=== PATIENT | female | born 1925 | race Caucasian/White ===

== ENCOUNTER 2017-04-28 12:57 | Emergency (ER) | payer MEDICARE ==
--- NOTE | 2017-04-28 14:06 | ED ---
General Adult HPI - General Chief complaint: Arrhythmia/Palpitations Stated complaint: leg pain/injury Time Seen by Provider: 04/28/17 13:28 Source: patient, RN notes reviewed Mode of arrival: ambulatory Limitations: no limitations - History of Present Illness Initial comments: 89-year-old female presents for evaluation of right lower extremity swelling erythema and warmth. Patient states she has approximately 2 days ago. She also is complaining of palpitations and shortness of breath. Denies chest pain. States over the past week these additional symptoms have developed. She does have a history of atrial fibrillation. She is currently on Coumadin. Denies abdominal pain. Denies nausea vomiting or diarrhea. She has not been eating well, this is secondary to stress at home as her is currently sick. - Related Data Home Medications Medication Instructions Recorded Confirmed Digoxin [Lanoxin] 250 mcg PO HS 04/28/17 04/28/17 Furosemide [Lasix] 20 mg PO DAILY 04/28/17 04/28/17 Levothyroxine Sodium [Synthroid] 50 mcg PO DAILY 04/28/17 04/28/17 Losartan Potassium [Cozaar] 25 mg PO DAILY 04/28/17 04/28/17 Metoprolol Tartrate [Lopressor] 25 mg PO BID 04/28/17 04/28/17 Spironolactone [Aldactone] 25 mg PO DAILY@2100 04/28/17 04/28/17 Travoprost [Travatan Z 0.004%] 1 drop BOTH EYES HS 04/28/17 04/28/17 Warfarin [Coumadin] 2.5 mg PO MOWEFR 04/28/17 04/28/17 Warfarin [Coumadin] 5 mg PO SUTUTHSA 04/28/17 04/28/17 Allergies Allergy/AdvReac Type Severity Reaction Status Date / Time No Known Allergies Allergy Verified 04/28/17 15:29 Review of Systems ROS Statement: Those systems with pertinent positive or pertinent negative responses have been documented in the HPI. ROS Other: All systems not noted in ROS Statement are negative. Past Medical History Past Medical History: Atrial Fibrillation, Cancer Additional Past Medical History / Comment(s): lung cancer History of Any Multi-Drug Resistant Organisms: None Reported Additional Past Surgical History / Comment(s): lobectomy Past Psychological History: No Psychological Hx Reported Smoking Status: Never smoker Past Alcohol Use History: None Reported Past Drug Use History: None Reported General Exam Limitations: no limitations General appearance: alert, in no apparent distress Head exam: Present: atraumatic, normocephalic Eye exam: Present: normal appearance, PERRL ENT exam: Present: normal exam Neck exam: Present: normal inspection. Absent: tenderness, meningismus Respiratory exam: Present: normal lung sounds bilaterally. Absent: respiratory distress Cardiovascular Exam: Present: tachycardia, irregular rhythm GI/Abdominal exam: Present: soft. Absent: distended, tenderness Extremities exam: Present: pedal edema, other (Right lower extremity, slightly larger than left, there is erythema, ecchymosis on the anterior canela.) Neurological exam: Present: alert, oriented X3. Absent: motor sensory deficit Psychiatric exam: Present: normal affect, normal mood Skin exam: Present: warm, dry. Absent: cyanosis, diaphoretic Course Vital Signs 04/28/17 04/28/17 13:20 14:08 Temperature 98.1 F Pulse Rate 121 H Pulse Rate [ 115 H [employer] ] Respiratory 22 Rate Blood Pressure 158/88 O2 Sat by Pulse 97 Oximetry EKG Findings - EKG Comments: EKG Findings:: afibrillation with RVR, ventricular rate 112, low voltage QRS, castration 86, QTC 453 signs of ischemia. Medical Decision Making - Medical Decision Making 89-year-old female presents with chief complaint of lower extremity swelling and bruising on the right canela. She also had some shortness of breath which has been ongoing. Workup includes ultrasound of the right lower extremity which is negative for DVT. X-ray of the tibia-fibula does show some soft tissue edema. There is no overlying warmth, there is ecchymosis. This is consistent with contusion and hematoma. Chest x-rays obtained for shortness of breath, negative for pneumonia, there is cardiomegaly versus effusion. Laboratory studies reveal white blood cell count 7.2. Platelets 95, INR 4.0, troponin negative, urinalysis negative. Patient is instructed to hold the next 2 doses of her Coumadin for elevated INR. Patient is given IV fluid and additional dose of her metoprolol for her A. fib with RVR, patient's heart rate does improve to the 80s to 90s. Given the x-ray findings and low voltage EKG, there is concern for effusion. These findings were discussed with the patient' s primary care physician who states the patient does have a known pericardial effusion. There is no plan for surgical intervention. Patient will follow-up with primary care physician early this week. Return to the emergency department with worsening symptoms. - Lab Data Result diagrams: 04/28/17 14:06 04/28/17 14:06 Lab Results 04/28/17 04/28/17 04/28/17 Range/Units 14:06 14:06 14:06 WBC 7.2 (3.8-10.6) k/uL RBC 4.50 (3.80-5.40) m/uL Hgb 13.5 (11.4-16.0) gm/dL Hct 42.7 (34.0-46.0) % MCV 94.9 (80.0-100.0) fL MCH 29.9 (25.0-35.0) pg MCHC 31.6 (31.0-37.0) g/dL RDW 14.4 (11.5-15.5) % Plt Count 95 L (150-450) k/uL Neutrophils % 66 % Lymphocytes % 21 % Monocytes % 8 % Eosinophils % 1 % Basophils % 0 % Neutrophils # 4.7 (1.3-7.7) k/uL Lymphocytes # 1.5 (1.0-4.8) k/uL Monocytes # 0.6 (0-1.0) k/uL Eosinophils # 0.1 (0-0.7) k/uL Basophils # 0.0 (0-0.2) k/uL Manual Slide Review Performed PT (9.0-12.0) sec INR (<1.2) APTT (22.0-30.0) sec Sodium 141 (137-145) mmol/L Potassium 4.6 (3.5-5.1) mmol/L Chloride 102 (98-107) mmol/L Carbon Dioxide 29 (22-30) mmol/L Anion Gap 10 mmol/L BUN 18 H (7-17) mg/dL Creatinine 1.00 (0.52-1.04) mg/dL Est GFR (MDRD) Af Amer >60 (>60 ml/min/1.73 sqM) Est GFR (MDRD) Non-Af 52 (>60 ml/min/1.73 sqM) Glucose 98 (74-99) mg/dL Plasma Lactic Acid Brayden (0.7-2.0) mmol/L Calcium 9.6 (8.4-10.2) mg/dL Magnesium 2.1 (1.6-2.3) mg/dL Total Bilirubin 0.8 (0.2-1.3) mg/dL AST 38 H (14-36) U/L ALT 35 (9-52) U/L Alkaline Phosphatase 72 (38-126) U/L Total Creatine Kinase 113 (30-135) U/L CK-MB (CK-2) 3.4 H* (0.0-2.4) ng/mL CK-MB (CK-2) Rel Index 3.0 Troponin I <0.012 (0.000-0.034) ng/mL Total Protein 8.1 (6.3-8.2) g/dL Albumin 4.4 (3.5-5.0) g/dL Urine Color Urine Appearance (Clear) Urine pH (5.0-8.0) Ur Specific Nevis (1.001-1.035) Urine Protein (Negative) Urine Glucose (UA) (Negative) Urine Ketones (Negative) Urine Blood (Negative) Urine Nitrite (Negative) Urine Bilirubin (Negative) Urine Urobilinogen (<2.0) mg/dL Ur Leukocyte Esterase (Negative) 04/28/17 04/28/17 04/28/17 Range/Units 14:06 14:06 14:40 WBC (3.8-10.6) k/uL RBC (3.80-5.40) m/uL Hgb (11.4-16.0) gm/dL Hct (34.0-46.0) % MCV (80.0-100.0) fL MCH (25.0-35.0) pg MCHC (31.0-37.0) g/dL RDW (11.5-15.5) % Plt Count (150-450) k/uL Neutrophils % % Lymphocytes % % Monocytes % % Eosinophils % % Basophils % % Neutrophils # (1.3-7.7) k/uL Lymphocytes # (1.0-4.8) k/uL Monocytes # (0-1.0) k/uL Eosinophils # (0-0.7) k/uL Basophils # (0-0.2) k/uL Manual Slide Review PT 38.8 H (9.0-12.0) sec INR 4.0 H (<1.2) APTT 42.3 H (22.0-30.0) sec Sodium (137-145) mmol/L Potassium (3.5-5.1) mmol/L Chloride (98-107) mmol/L Carbon Dioxide (22-30) mmol/L Anion Gap mmol/L BUN (7-17) mg/dL Creatinine (0.52-1.04) mg/dL Est GFR (MDRD) Af Amer (>60 ml/min/1.73 sqM) Est GFR (MDRD) Non-Af (>60 ml/min/1.73 sqM) Glucose (74-99) mg/dL Plasma Lactic Acid Brayden 1.1 (0.7-2.0) mmol/L Calcium (8.4-10.2) mg/dL Magnesium (1.6-2.3) mg/dL Total Bilirubin (0.2-1.3) mg/dL AST (14-36) U/L ALT (9-52) U/L Alkaline Phosphatase (38-126) U/L Total Creatine Kinase (30-135) U/L CK-MB (CK-2) (0.0-2.4) ng/mL CK-MB (CK-2) Rel Index Troponin I (0.000-0.034) ng/mL Total Protein (6.3-8.2) g/dL Albumin (3.5-5.0) g/dL Urine Color Colorless Urine Appearance Clear (Clear) Urine pH 7.0 (5.0-8.0) Ur Specific Nev[place] 1.003 (1.001-1.035) Urine Protein Negative (Negative) Urine Glucose (UA) Negative (Negative) Urine Ketones Negative (Negative) Urine Blood Negative (Negative) Urine Nitrite Negative (Negative) Urine Bilirubin Negative (Negative) Urine Urobilinogen <2.0 (<2.0) mg/dL Ur Leukocyte Esterase Negative (Negative) Disposition Clinical Impression: Atrial fibrillation, Hematoma, Contusion, lower leg, Pericardial effusion Disposition: HOME SELF-CARE Condition: Good Instructions: Pericardial Effusion (ED), A-fib (Atrial Fibrillation) (ED), Contusion in Adults (ED) Referrals: Jerson Eaton MD [Primary Care Provider] - 1-2 days Time of Disposition: 16:13
[2017-04-28 14:16] LABS: Basophils % (A) 0 %; CH 30.4; CHCM 32.2; Eosinophils # (A) 0.1 k/uL (0-0.7); Eosinophils % (A) 1 %; HCT 42.7 % (34.0-46.0); HDW 2.34; HGB 13.5 gm/dL (11.4-16.0); Large Platelets Flag Slight; Luc # (Auto) 0.17; Luc % (Auto) 2; Lymphocytes # (A) 1.5 k/uL (1.0-4.8); Lymphocytes % (A) 21 %; MCH 29.9 pg (25.0-35.0); MCHC 31.6 g/dL (31.0-37.0); MCV 94.9 fL (80.0-100.0); Mean Platelet Volume 10.8; Monocytes # (A) 0.6 k/uL (0-1.0); Monocytes % (A) 8 %; Neutrophils # (A) 4.7 k/uL (1.3-7.7); Neutrophils % (A) 66 %; RDW 14.4 % (11.5-15.5); WBC 7.2 k/uL (3.8-10.6); WBC (Perox) 7.31
[2017-04-28] MEDS ORDERED: SODIUM CHLORIDE 0.9% 500 ML IV ONE (14:16)
[2017-04-28 14:26] LABS: Partial Thromboplastin Time 42.3 sec (22.0-30.0); Prothrombin Time 38.8 sec (9.0-12.0)
[2017-04-28 14:27] LABS: ALT 35 U/L (9-52); AST 38 U/L (14-36); Alkaline Phosphatase 72 U/L (38-126); Anion Gap 10 mmol/L; Blood Urea Nitrogen 18 mg/dL (7-17); Calcium 9.6 mg/dL (8.4-10.2); Carbon Dioxide 29 mmol/L (22-30); Chloride 102 mmol/L (98-107); Glucose 98 mg/dL (74-99); Magnesium 2.1 mg/dL (1.6-2.3); Non-African American GFR(MDRD) 52 (>60 ml/min/1.73 sqM); Potassium 4.6 mmol/L (3.5-5.1); Sodium 141 mmol/L (137-145); Total Bilirubin 0.8 mg/dL (0.2-1.3); Total Protein 8.1 g/dL (6.3-8.2)
[2017-04-28 14:29] LABS: Manual Review Performed
[2017-04-28] MEDS ORDERED: SODIUM CHLORIDE 0.9% 1,000 ML IV SCH (14:30)
[2017-04-28 14:35] LABS: Creatine Kinase 113 U/L (30-135)
--- NOTE | 2017-04-28 14:35 | XR ---
EXAMINATION TYPE: XR chest 2V DATE OF EXAM: 04/28/2017 COMPARISON: 03/24/2014. HISTORY: Shortness of breath TECHNIQUE: Frontal and lateral views of the chest are obtained. FINDINGS: Cardiomegaly is redemonstrated, increased from the prior that could be related to degree o f inspiration and patient positioning although evaluation for pericardial effusion should be consider ed. Chronic interstitial prominence is unchanged from the prior. Mediastinal surgical clips are again noted. Generalized osseous demineralization is seen. No new focal consolidation, pleural effusion or pneumothorax. Exaggerated thoracic kyphosis and moderate degenerative changes of the right acromiocl avicular joint are present. IMPRESSION: 1. Increasing cardiomegaly from the prior, which could be related to positioning or progressing cardi ac disease however pericardial effusion should also be considered. 2. Chronic parenchymal changes without evidence of acute pulmonary consolidation.
--- NOTE | 2017-04-28 14:36 | XR ---
EXAMINATION TYPE: XR tibia fibula RT DATE OF EXAM: 04/28/2017 CLINICAL HISTORY: Right lower extremity pain TECHNIQUE: Two views of the right leg are obtained. COMPARISON: None. FINDINGS: There is no acute fracture or dislocation seen in the right tibia or fibula. The right kn ee and ankle joints appear aligned without dislocation with mild degenerative change. Diffuse right l ower extremity subcutaneous soft tissue swelling is moderate. Multiple phleboliths are incidentally n oted. IMPRESSION: 1. There is no acute fracture or dislocation seen in the right tibia or fibula. 2. Diffuse moderate right lower extremity subcutaneous edema.
[2017-04-28 14:48] LABS: Troponin I <0.012 ng/mL (0.000-0.034)
[2017-04-28 14:58] LABS: Creatine Kinase MB 3.4 ng/mL (0.0-2.4)
[2017-04-28 15:02] LABS: Appearance,Urine Clear (Clear); Bilirubin,Urine Negative (Negative); Glucose,Urine (UA) Negative (Negative); Ketones,Urine Negative (Negative); Leukocyte Esterase,Urine Negative (Negative); Nitrite,Urine Negative (Negative); Protein,Urine Negative (Negative); Specific Gravity,Urine 1.003 (1.001-1.035); UA Billing (MACRO vs. MICRO) CHEM; Urobilinogen,Urine <2.0 mg/dL (<2.0)
--- NOTE | 2017-04-28 15:17 | US ---
EXAMINATION TYPE: US venous doppler duplex LE RT DATE OF EXAM: 04/28/2017 2:03 PM COMPARISON: US CLINICAL HISTORY: Pain. Right leg pain and redness SIDE PERFORMED: Right TECHNIQUE: The lower extremity deep venous system is examined utilizing real time linear array sonog liliana with graded compression, doppler sonography and color-flow sonography. VESSELS IMAGED: External Iliac Vein (EIV) Common Femoral Vein Deep Femoral Vein Greater Saphenous Vein * Femoral Vein Popliteal Vein Small Saphenous Vein * Proximal Calf Veins (* superficial vessels) Right Leg: Negative for DVT Grayscale, color doppler, spectral doppler imaging performed of the deep veins of the lower extremiti es. There is normal flow, compressibility, vascular waveforms. IMPRESSION: No sonographic evidence of deep venous thrombosis within the right lower extremity.
[2017-04-28] MEDS ORDERED: METOPROLOL TARTRATE 25 MG TAB PO STA (15:44)
[2017-04-28 16:36] VITALS: BP 123/87; PULSE 96; RESP 20
[2017-04-28 16:54] VITALS: TEMP 98.7
== END 2017-04-28 16:46 | disposition home or self-care (01) ==
LOC: EC 12:57
DX: I48.91 Unspecified atrial fibrillation (principal); I31.3 Pericardial effusion (noninflammatory); S80.11XA Contusion of right lower leg, initial encounter; Z85.118 Personal history of other malignant neoplasm of bronchus and lung; Z79.01 Long term (current) use of anticoagulants; Z79.899 Other long term (current) drug therapy
CPT/HCPCS: 36415; 71020; 80053; 81003; 82550; 82553; 83605; 83735; 84484; 85025; 85610; 85730; 87040; 93005; 96360; 96361; 99285